=== PATIENT | female | born 1975 | race Caucasian/White ===

== ENCOUNTER 2016-06-15 19:35 | Emergency (ER) | payer OTHER ==
[~2016-06-15 19:35] MED LIST: AFRIN3 ML; ALBUTEROL0.83 MG/ML INH; ALBUTEROL17 GM; ALBUTEROL17 GM INH; ALBUTEROL20 ml INH; ALBUTEROL20 ml PO; AMOXICILLIN PO; AMOXICILLIN500 M1; AUGMENTIN PO; AZITHROMYCIN250 MG PO; BENZONATATE; BENZONATATE PO; BROMFED DM COU118 ML PO; CEFTIN PO; CHANTIX PO; CLARITIN D PO; CLARITIN10 MG PO; COMBIVENT U/D3 M4 INH; DELSYM30 MG/5 ML PO; DELTASONE20 MG PO; DIAZEPAM PO; DICLOFENAC; DICYCLOMINE HCL20 MG PO; DOXYCYCLINE PO; FLEXERIL10 M1; FLONASE; FLONASE 0.05% N16 G1; FLONASE16 GM; IBUPROFEN; KEFLEX500 M2 PO; LEVAQUIN PO; LEVAQUIN750 MG PO; LIDODERM30 EA TOP; METROLOTION TOP; MOTRIN600 M2 PO; MUCINEX D1 TAB.SR1 PO; MUCINEX DM TABL1 BOX PO; NO MEDICATIONS; NORCO1 TAB 10/3 PO; NYQUIL D COLD295 ML PO; PERCOCET 5-3251 TAB PO; PERCOCET5/325 PO; PHENERGAN PO; PREDNISONE PO; PROMETHAZI6.25 MG/5 PO; PROMETHAZINE D118 ML PO; PYRIDIUM PO; REGLAN10 MG PO; ROBITUSSIN A-C S5 ML PO; ROBITUSSIN A-C-S1 ML PO; ROBITUSSIN ALL118 ML PO; ROBITUSSIN NIG118 ML PO; STRI PO; TESSALON PERLE100 M1 PO; THERAFLU PO; VICODIN; VICODIN PO; VOLTAREN75 MG PO; ZITHROMAX PO; ZOFRAN ODT4 MG/UDTAB PO; ZYRTEC PO; ZYRTEC-D TABLE1 EACH
[2016-07-31] MEDS ORDERED: ALBUTEROL 0.5ML INH (17:18)
== END 2016-06-15 19:36 | disposition home or self-care (01) ==
LOC: SED 19:35
DX: T78.40XA Allergy, unspecified, initial encounter (principal); J06.9 Acute upper respiratory infection, unspecified; F17.210 Nicotine dependence, cigarettes, uncomplicated; Z79.899 Other long term (current) drug therapy
CPT/HCPCS: 99282

== ENCOUNTER 2016-07-31 17:47 | Emergency (ER) | payer OTHER ==
--- NOTE | ~2016-07-31 | CR63 ---
[facility] A Service of [facility] RADIOLOGY TEXT RESULTS PATIENT: TERESA DHALIWAL LOCATION: SED : 79 UNIT #: [id number] AGE: [address]: Karen Leslie APRN SEX: F ORDER DR: [id number] [address] [address] [id number] E MR#: [id number] Acc #: [id number] NAME: TERESA DHALIWAL : 1975 SEX: F STUDY DATE/TIME: 07/31/2016 17:32 UNIT: SED ROOM: STUDY DESCRIPTION: CR Chest 2 View Attending Physician: Karen Leslie A.P.R.N. Ordering Physician: Karen Julian A.P.R.N. Primary Care Physician: Atilio Jones M.D. MEDICAL IMAGING REPORT This report is preliminary unless electronic signature is present. EXAM PA and lateral views of the chest COMPARISON October 15, 2016 and May 02, 2016. INDICATION A 41-year-old female with cough and chest congestion for 2 weeks. FINDINGS Cardiomediastinal silhouette is normal. Healed right-sided rib fractures are again noted. Suture material again seen in the right upper lobe. Prominent breast shadows again present over both lower hemithoraces. Nipple shadows are noted bilaterally. There is no evidence of pleural effusion or pneumothorax. Stable appearance of the pulmonary interstitium. No evidence of acute airspace disease. Compared to October 15, 2016, there appear to be multiple adjacent healing left-sided rib fractures. IMPRESSION 1. No acute radiographic abnormality of the chest. 2. Stable healed right-sided rib fractures. As compared to May 17, 2016, there are new healing left-sided rib fractures. Clinical correlation with history of trauma is recommended. Dictated by... Romaine Singer M.D. THIS IS AN ELECTRONICALLY VERIFIED REPORT [facility] A Service of [facility] RADIOLOGY TEXT RESULTS PATIENT: TERESA DHALIWAL LOCATION: SED : 79 UNIT #: [id number] AGE: [address]: Karen Leslie APRN SEX: F ORDER DR: Romaine Singer M.D. at 08/01/2016 5:28 PM GREGORY/demarcus TD: 07/31/2016 20:54 JOB #: [id number] MEDICAL IMAGING REPORT Page 1 of 1
[~2016-07-31 17:47] MED LIST changes: +ALBUTEROL 0.5ML INH
== END 2016-07-31 18:21 | disposition home or self-care (01) ==
LOC: SED 17:47
DX: J06.9 Acute upper respiratory infection, unspecified (principal)
CPT/HCPCS: 71020; 99283

== ENCOUNTER 2016-08-10 04:27 | Emergency (ER) | payer OTHER | END 2016-08-10 04:41 | disposition home or self-care (01) | LOC: SED 04:27 | DX: J45.901 Unspecified asthma with (acute) exacerbation (principal) | CPT/HCPCS: 99283 ==